=== PATIENT | female | born 1925 | race Hispanic/Latino ===

== ENCOUNTER 2017-03-05 10:13 | Outpatient (CLI) | payer MEDICARE ==
--- NOTE | 2017-03-05 16:47 | Ultrasound Report ---
Bilateral breast ultrasound including all 4 quadrants and subareolar regions. History: Follow up study. Findings: Comparison is made to the previous breast ultrasound and mammogram performed on July 24, 2016. The right breast demonstrates an ovoid shaped hypoechoic lesion measuring 9 x 4 x 9 mm at the 1:00 position, 12 centers from nipple. There is an area of increased echogenicity which probably represents the biopsy clip noted mammographically. This lesion is similar in size compared to previous study and represents the biopsy proven malignancy. The left breast study demonstrates a 1.2 x 1.3 cm round complex mass with associated areas of increased echogenicity/calcification and acoustic shadowing. This is located at the 9:00 position and has not changed appreciably in size despite differences in measurement technique over the interval. The areas of increased echogenicity/calcification correlate with the mammographic calcifications. Impression: 1. No significant interval change in the right breast mass which contains a biopsy clip and presumably represents the known malignancy. 2. No significant interval change in the left breast mass with benign features at the 9:00 position. BI-RADS code: Right breast: 6. Left breast: 2. Recommendation: One year followup mammogram unless clinically indicated sooner.
== END 2017-03-05 10:14 | disposition home or self-care (01) ==
LOC: US 10:13
PROVIDERS: ATTEND Internal Medicine Hematology & Oncology
DX: C50.212 Malignant neoplasm of upper-inner quadrant of left female breast (principal); N64.89 Other specified disorders of breast

== ENCOUNTER 2017-09-04 10:12 | Outpatient (CLI) | payer MEDICARE ==
--- NOTE | 2017-09-04 11:16 | Ultrasound Report ---
Bilateral breast ultrasound: Left breast cancer. Comparison is made to prior exam in March 2017. Imaging of the left breast again demonstrates the circumscribed heterogeneous mass in 9 o'clock location. No change in size or echogenic pattern. In the 1:00 location 5 cm from the nipple there is a circumscribed heterogeneously hypoechoic nodule measuring 4.5 mm not identified on prior exam. There is slight enhancement of the posterior wall. Imaging of the right breast demonstrate the circumscribed hypoechogenic 1 cm nodule in the 1:00 location unchanged prior study. No other findings. Impressions: 1. Newly identified left breast nodule. 2. The left and right breast nodules being followed are unchanged. Recommendation: Ultrasound guided aspiration/biopsy of the new left breast nodule. The findings and recommendations have been discussed with the patient. BI-RADS CATEGORY: 4 = Suspicious ACR BI-RADS MAMMOGRAPHIC CODES: 0 = Needs additional imaging evaluation; 1 = Negative; 2 = Benign; 3 = Probably benign; 4 = Suspicious; 5 = Malignant; 6 = Known biopsy-proven malignancy COMMENT: 1. Dense breast tissue, i.e., adenosis, fibrocystic changes, etc., may obscure an underlying neoplasm. 2. Approximately 10% of cancers are not detected with mammography. 3. A negative mammography report should not delay biopsy if a clinically suspicious mass is present.
== END 2017-09-04 10:13 | disposition home or self-care (01) ==
LOC: US 10:12
PROVIDERS: ATTEND Internal Medicine Hematology & Oncology
DX: C50.212 Malignant neoplasm of upper-inner quadrant of left female breast (principal); N63.0 Unspecified lump in unspecified breast

== ENCOUNTER 2017-09-16 12:44 | Outpatient (CLI) | payer MEDICARE ==
--- NOTE | 2017-09-16 14:49 | Ultrasound Report ---
LEFT BREAST ULTRASOUND: 09/16/17 12:44:00 CLINICAL: This 89-year-old patient appeared for an ultrasound biopsy of a newly identified 4.5 mm nodule at 1 o'clock 5 cm from the nipple.She is being treated medically for bilateral breast cancer. COMPARISON: 09/04/17 FINDINGS: Ultrasound of the left breast demonstrated an oval anechoic cyst at 1 o'clock 4 cm from the nipple which appears to correlate with the complex lesion described on the recent ultrasound.It measures 4.4 mm. No other mass or cyst is identified at 1 o'clock 4 cm or 5 cm from the nipple. IMPRESSION: A probably benign cyst at 1 o'clock 4 cm from the nipple. Recommend short-term followup left breast ultrasound and bilateral mammogram in three months. BI-RADS 3 - - Probably Benign
== END 2017-09-16 12:45 | disposition home or self-care (01) ==
LOC: SPVWC 12:44
PROVIDERS: ATTEND Internal Medicine Hematology & Oncology
DX: N60.02 Solitary cyst of left breast (principal); N63.20 Unspecified lump in the left breast, unspecified quadrant